=== PATIENT | female | born 1950 | race African-American/Black ===

== ENCOUNTER → 2017-03-29 | Outpatient (CLI) | payer MEDICAID ==
[2016-03-21 10:22] VITALS: BP 188/95
--- NOTE | 2017-03-29 11:01 | US ---
SUPERFICIAL ULTRASOUND CLINICAL INDICATION: Abdominal wall mass for 2 months PROCEDURE: Grayscale images of the abdominal wall were obtained COMPARISON: None. FINDINGS: Within the right lower quadrant is a ill-defined hypoechoic structure measuring 5.4 cm, th is is 7 cm deep within the abdomen (not superficial). Within the subcutaneous anterior abdominal wal l is an ill-defined somewhat hyper/isoechoic nodule without significant internal flow. This measures 1.3 cm. IMPRESSION: 1. Ill-defined hypoechoic area within the right lower quadrant is entirely nonspecific especially gi greta patient's body habitus and the end inherent limitations of ultrasound. Additionally, given its d epth it is unlikely this represents a palpable finding. CT the abdomen and pelvis with contrast coul d be obtained for further evaluation if clinically indicated. 2. Ill-defined hyperechoic focus within the anterior abdominal wall is also a nonspecific finding bu t may represent either a lipoma or fat necrosis from trauma. Reported By:
[2017-03-29 11:11] LABS: CREATININE 0.56 mg/dL (0.55-1.02)
== END ==
LOC: RAD 09:11
PROVIDERS: ATTEND Nurse Practitioner Family
DX: R19.03 Right lower quadrant abdominal swelling, mass and lump (principal); R55 Syncope and collapse; R42 Dizziness and giddiness
CPT/HCPCS: 36415; 76705; 82565; 84520